=== PATIENT | female | born 1985 | race Asian ===

== ENCOUNTER 2018-03-26 08:43 | Inpatient (IN) | payer OTHER ==
[~2018-03-26] VITALS: Ht 154.9 cm; Wt 68.0 kg
[2018-03-26] MEDS ORDERED: LR 1,000 ML IV ONE (09:08)
[2018-03-26] MEDS ORDERED: OXYTOCIN/0.9 % SODIUM CHLORIDE 1,000 ML IV SCH (09:08)
[2018-03-26] MEDS ORDERED: NALBUPHINE HCL 10 MG/ML AMP IVP PRN (09:15)
[2018-03-26] MEDS ORDERED: NALBUPHINE HCL 10 MG/ML AMP IM PRN (09:15)
[2018-03-26] MEDS ORDERED: TERBUTALINE SULFATE 1 MG/ML VIAL SUBCUT ONE (09:15)
[2018-03-26 10:06] LABS: BASOPHILS % (AUTO) 0.3 % (0.0-2.0); EOSINOPHILS # (AUTO) 0.1 K/uL (0.0-0.4); EOSINOPHILS % (AUTO) 1.2 % (0.0-4.0); HEMATOCRIT 34.6 % (36-48); HEMOGLOBIN 12.1 g/dL (12.0-16.0); LYMPHOCYTES # (AUTO) 1.5 K/uL (1.0-5.5); LYMPHOCYTES % (AUTO) 16.6 % (20.5-51.5); MEAN CORPUSCULAR HEMOGLOBIN 31 pg (27-31); MEAN CORPUSCULAR HGB CONC 35 % (32-36); MEAN CORPUSCULAR VOLUME 89 fL (79.0-98.0); MONOCYTES # (AUTO) 0.5 K/uL (0.0-1.0); MONOCYTES % (AUTO) 5.3 % (1.7-9.3); NEUTROPHILS % (AUTO) 76.6 % (40.0-70.0); PLATELET COUNT (AUTO) 272 K/uL (130-430); RED BLOOD CELL COUNT(AUTO) 3.87 MIL/uL (4.2-6.2); RED CELL DISTRIBUTION WIDTH 13.4 % (9.0-15.0); WHITE BLOOD COUNT (AUTO) 9.1 K/uL (4.8-10.8)
[2018-03-26] MEDS ORDERED: fentaNYL CITRATE/PF 100 MCG/2 ML AMP ONE (10:16)
[2018-03-26] MEDS ORDERED: ROPIVACAINE 0.2% 100 ML ONE ×2 (10:16→18:55)
[2018-03-26] MEDS: LR 1,000 ML IV SCH ×2 (10:52→15:46)
[2018-03-26] MEDS ORDERED: MINERAL OIL 30 ML UDC PO ONE (12:00)
[2018-03-26] MEDS ORDERED: LR 500 ML IV ONE (13:43)
[2018-03-26] MEDS ORDERED: FENT2mCg/mL-ROPIVA0.2%/NS EPID 150 ML EP SCH (13:45)
[2018-03-26 19:17] VITALS: BP_SYST 102
[2018-03-26] MEDS ORDERED: OXYTOCIN/0.9 % SODIUM CHLORIDE 1,000 ML IV ONE (20:38)
[2018-03-26] MEDS ORDERED: LR 1,000 ML IV SCH (20:38)
[2018-03-26] MEDS ORDERED: RHO(D) IMMUNE GLOBULIN/MALTOSE 1500 UNITS/1.3 ML (WINHRO) IM PRN (20:45)
[2018-03-26] MEDS ORDERED: SENNOSIDES/DOCUSATE SODIUM 1 TAB TABLET(SENOKOT-S) PO PRN (20:45)
[2018-03-26] MEDS ORDERED: OXYCODONE/ACETAMINOPHEN 5-325 TABLET PO PRN ×2 (20:45)
[2018-03-26] MEDS ORDERED: SIMETHICONE 80 MG TAB.CHEW PO PRN (20:45)
[2018-03-26] MEDS ORDERED: LANOLIN 7 GM OINT. TP PRN (20:45)
[2018-03-26] MEDS ORDERED: BISACODYL 10 MG/SUPPOSITORY RC PRN (20:45)
[2018-03-26] MEDS ORDERED: ANUSOL 1 EA SUPP.RECT (PREPARATION H) RC PRN (20:45)
[2018-03-26] MEDS ORDERED: MEASLES,MUMPS&RUBELLA VACC/PF 12500 UNIT/0.5 ML VIAL SUBQ PRN (20:45)
[2018-03-26] MEDS ORDERED: TEMAZEPAM 15 MG CAPSULE PO PRN (21:00)
[2018-03-26] MEDS: DOCUSATE SODIUM 100 MG CAPSULE PO PRN (23:30)
[2018-03-26] MEDS: IBUPROFEN 800 MG TABLET PO PRN (23:30)
[2018-03-27 05:55] LABS: HEMATOCRIT 33.2 % (36-48)
[2018-03-27] MEDS: IBUPROFEN 800 MG TABLET PO PRN ×2 (06:25→12:20)
[2018-03-27] MEDS: DOCUSATE SODIUM 100 MG CAPSULE PO PRN (06:26)
== END 2018-03-27 21:41 | disposition home or self-care (01) | DRG 775 ==
LOC: PREOBSVTOIN 08:44 → SPU 08:57
PROVIDERS: ADMIT Obstetrics & Gynecology; ATTEND Obstetrics & Gynecology
PROC: 10E0XZZ Delivery of Products of Conception, External Approach (ICD-10-PCS; principal; 2018-03-26)
PROC: 3E0R3BZ Introduction of Anesthetic Agent into Spinal Canal, Percutaneous Approach (ICD-10-PCS; 2018-03-26)
PROC: 00HU33Z Insertion of Infusion Device into Spinal Canal, Percutaneous Approach (ICD-10-PCS; 2018-03-26)
DX: O80 Encounter for full-term uncomplicated delivery (principal); Z3A.39 39 weeks gestation of pregnancy; Z37.0 Single live birth
CPT/HCPCS: 36415; 81002-TC; 85018-TC; 85025; 86592; 86886; 86900; 86901; J2590; J2795; J3010; J7120